=== PATIENT | female | born 1975 | race Caucasian/White ===

== ENCOUNTER 2019-11-19 11:49 | Emergency (ER) | payer SELFPAY ==
[~2019-11-19] VITALS: Ht 165.1 cm; Wt 65.0 kg
[2019-11-19] MEDS ORDERED: SODIUM CHLORIDE 0.9% 1,000 ML IV ONE ×2 (12:14→13:54)
[2019-11-19 12:31] LABS: BASOPHILS % 0.9 % (0.0-2.0); EOSINOPHILS % 2.3 % (0.0-5.0); HEMATOCRIT. 43.9 % (36.0-48.0); HEMOGLOBIN. 14.9 g/dL (12.0-16.0); LYMPHOCYTES % 18.6 % (20.0-50.0); MEAN CORPUSCULAR HEMOGLOBIN 30.6 pg (28.0-32.0); MEAN CORPUSCULAR VOLUME 90.1 fL (81.0-99.0); MEAN PLATELET VOLUME 9.3 fl (7.4-10.4); MONOCYTES % 9.5 % (2.0-8.0); NEUTROPHILS % 68.7 % (40.0-76.0); PLATELET 305 x1000/uL (130-400); RED BLOOD CELL COUNT 4.87 mill/uL (4.2-5.4); RED CELL DISTRIBUTION WIDTH 13.5 % (11.6-14.6)
[2019-11-19 12:51] LABS: CHLORIDE 101 mEq/L (98-107)
[2019-11-19 12:56] LABS: ETHANOL BLOOD < 10 mg/dL
[2019-11-19 13:10] LABS: HCG SCREEN NEGATIVE
[2019-11-19] MEDS ORDERED: POTASSIUM CHLORIDE 20MEQ TABLET SR PO ONE (14:00)
[2019-11-19 17:24] VITALS: BP 120/78
== END 2019-11-19 17:32 | disposition home or self-care (01) ==
LOC: ER 11:49
DX: F91.8 Other conduct disorders (principal); E86.0 Dehydration; F99 Mental disorder, not otherwise specified
CPT/HCPCS: 36415; 80053; 80307; 80320; 80329; 84703; 85025; 96360; 96361; 99285; J7030; G0480